=== PATIENT | male | born 1995 | race Caucasian/White ===

== ENCOUNTER 2025-07-06 16:09 | Emergency (ER) | payer BC, SELFPAY ==
[2025-07-06 16:14] VITALS: BP 194/88
[2025-07-06 16:42] VITALS: BP 138/71
--- NOTE | 2025-07-06 16:49 | ED.GENMED ---
History of Present Illness
<Reynold Crocker MD, Resident - Last Filed: 07/06/25 18:59>
General
Chief Complaint: Chest Problem
Source: patient
Time Seen by Provider: 07/06/25 16:30
History of Present Illness
History of Present Illness:
30 year old male with a past medical history of ADHD comes to the ED with recent history of chest discomfort. He says that the pain started around last night and is a squeezing pain. He has been getting light headed along with left sided shoulder
pain. He has had some chills and some mid epigastric pain recently as well. Patient says that he has had symptoms like this in the past when he was diagnosed with pericarditis around 7 years ago. He also mentions having back pain around the upper
mid back which has resolved.
Past History
<Reynold Crocker MD, Resident - Last Filed: 07/06/25 18:59>
Past History
ED Past Medical History: Other (ADHD)
ED Past Surgical History: None
Social History
Tobacco: Non-smoker
Alcohol: Occasional
Drug: None
Personal:
Review of Systems
<Reynold Crocker MD, Resident - Last Filed: 07/06/25 18:59>
Review of Systems
Allergies reviewed?: Yes
All Other Systems: ROS reviewed and negative except as documented in HPI and ROS
Phy Exam
<Reynold Crocker MD, Resident - Last Filed: 07/06/25 18:59>
General Physical Exam
General Presentation: well appearing and mild distress
General age: appears stated age
General Skin: warm and dry
General Habitus: normal
General Mental: alert
Cardiovascular Exam
Cardiovascular Exam: no edema, no murmur and bradycardia
Gastrointestinal Exam
Gastrointestinal Exam: normal bowel sounds, soft and non distended
Palpation: left upper quadrant: Minimal tenderness, left lower quadrant: No tenderness, right upper quadrant: Minimal tenderness and right lower quadrant: No tenderness
Musculoskeletal Exam
Musculoskeletal Exam: full ROM and no edema
Skin Exam
Skin Exam: normal color and warm/dry
Course
<Reynold Crocker MD, Resident - Last Filed: 07/06/25 18:59>
Orders/Labs/Results
Orders:
Orders
07/06/25 16:10
EKG [Electrocardiogram (*1)] Urgent
Reason for Study: Chest Pain
EKG- Treatment ONCE
07/06/25 16:50
Aspirin 325 mg PO NOW STA
Pantoprazole [Protonix] 20 mg PO NOW STA
07/06/25 17:18
Complete Blood Count/With Diff Urgent
Comprehensive Metabolic Panel Urgent
Lipase Urgent
Troponin I Urgent
07/06/25 17:40
US Abdomen Complete/Upper Urgent
Comment:
Reason For Exam: right upper abdominal pain
07/06/25 17:42
CR Chest - 2 Views Urgent
Comment:
Reason For Exam: chest pain
Abnormal Lab Results
07/06/25
17:18
RBC 4.62 L 10^6/uL
(4.70-6.10)
Absolute Monos (auto) 0.7 H 10^3/uL
(0.1-0.6)
07/06/25 17:18
07/06/25 17:18
Vital Signs
Initial and Last Documented VS:
Initial Vital Signs
Temp Pulse Resp BP Pulse Ox
98.3 F 65 18 194/88 100
07/06/25 16:14 07/06/25 16:14 07/06/25 16:14 07/06/25 16:14 07/06/25 16:14
Last Documented Vital Signs
Temp Pulse Resp BP Pulse Ox
98.5 F 51 24 126/68 99
07/06/25 17:45 07/06/25 17:45 07/06/25 17:45 07/06/25 17:45 07/06/25 17:45
<Sandeep Vela, DO - Last Filed: 07/06/25 19:08>
Orders/Labs/Results
Orders:
Orders
07/06/25 16:10
EKG [Electrocardiogram (*1)] Urgent
Reason for Study: Chest Pain
EKG- Treatment ONCE
07/06/25 16:50
Aspirin 325 mg PO NOW STA
Pantoprazole [Protonix] 20 mg PO NOW STA
07/06/25 17:18
Complete Blood Count/With Diff Urgent
Comprehensive Metabolic Panel Urgent
Lipase Urgent
Troponin I Urgent
07/06/25 17:40
US Abdomen Complete/Upper Urgent
Comment:
Reason For Exam: right upper abdominal pain
07/06/25 17:42
CR Chest - 2 Views Urgent
Comment:
Reason For Exam: chest pain
Abnormal Lab Results
07/06/25
17:18
RBC 4.62 L 10^6/uL
(4.70-6.10)
Absolute Monos (auto) 0.7 H 10^3/uL
(0.1-0.6)
07/06/25 17:18
07/06/25 17:18
Vital Signs
Initial and Last Documented VS:
Initial Vital Signs
Temp Pulse Resp BP Pulse Ox
98.3 F 65 18 194/88 100
07/06/25 16:14 07/06/25 16:14 07/06/25 16:14 07/06/25 16:14 07/06/25 16:14
Last Documented Vital Signs
Temp Pulse Resp BP Pulse Ox
98.5 F 51 24 126/68 99
07/06/25 17:45 07/06/25 17:45 07/06/25 17:45 07/06/25 17:45 07/06/25 17:45
<Reynold Crocker MD, Resident - Last Filed: 07/06/25 18:59>
MDM/Problems Addressed
Differential Diagnosis Includes:
Pericarditis, GERD, ACS, Pancreatitis
MDM/Problems Addressed:
30 year old male comes in with recent chest pain that is squeezing in nature.
EKG unremarkable and just shows Sinus Bradycardia which patient says he has been aware of
Will check CBC, CMP, troponin, Lipase
Lab work unremarkable so far, with no elevation in Troponin, any abnormalities in electrolytes or any increased leukocytosis
Lipase normal
Given a dose of Aspirin 325mg and some Protonix
Will check U/S Abdomen due to right sided abdominal pain and CXR
CXR unremarkable, no acute cardiopulmonary process
US Abd unremarkable as well
Symptoms most likely related to GERD vs Pericarditis. Would send in a prescription for 800mg Ibuprofen to take as needed and Omeprazole for gastric reflux.
<Reynold Crocker MD, Resident - Last Filed: 07/06/25 18:59>
*Pulse Oximetry
SaO2: 100
Oxygen Mode of Delivery: Room air
Patient hypoxic: no
*Critical Care Note
Total Time (30-74mins, 75-104mins- exclusive of procedures): Not Applicable
ED Attending Note
<Reynold Crocker MD, Resident - Last Filed: 07/06/25 18:59>
-
Portions of this chart may have been created with voice recognition software.� Occasional wrong word or��sound alike� substitutions may have occurred due to the inherent limitations of voice recognition software.
<Sandeep Vela DO - Last Filed: 07/06/25 19:08>
ED Attending Note
Patient seen and examined by attending physician: Yes
I performed a history and physical exam of patient and discussed management with resident, I reviewed resident's note and agree with documented findings and plan of care.: Yes
ED Attending Note:
I have reviewed and agree with history and treatment plan by Reynold Crocker MD. My exam revealed
General: no apparent distress, not acutely ill
Neck: supple. no meningeal signs. normal posterior pharynx
Heart: s1/s2 regular rate and rhythm, no murmur. equal radial
pulses. Chest wall tender to palpation mild right upper quadrant tenderness
HEENT: Pupils equal round reactive to light, EOMI
Lungs: no acute respiratory distress. clear bilaterally
Abdomen: normal bowel sounds. not tender. no CVAT
Neuro: alert and oriented. no focal neurological deficits cranial nerves II through XII intact
Skin: no rash
Psychiatric: well kept. interactive and cooperative
Extremities: no edema. no calf tenderness. negative homans. good distal pulses
30-year-old male with chest wall pain. Doubt ACS or PE. Stable for discharge.
Discharge Plan
Departure
Patient Disposition: Home (Routine Discharge)
Date of Disposition: 07/06/25
Time of Disposition: 18:58
Patient with high blood pressure during this ER visit?: Yes
Condition: Good
Discharge Problem:
Chest pain due to gastrointestinal reflux disease
Instructions: Chest Pain (DC), BLOOD PRESSURE
Prescriptions:
New
ibuprofen 800 mg tablet
800 mg PO Q8H PRN (Reason: Pain) Qty: 30 0RF
omeprazole 20 mg capsule,delayed release(DR/EC)
20 mg PO DAILY Qty: 30 0RF
Referrals:
JOSE ALBERTO Rice [Other]
Activity Restrictions/Additional Instructions:
As discussed, take ibuprofen for the pain as needed and omeprazole daily to help with your gastric reflux symptoms
If symptoms persist/get worse, please follow up with your PCP
If you develop worsening symptoms and fever/chills, please come back to the ED for further evaluation
Interventions
Interventions:
*Risk Screen - Suicide Last Done: 07/06/25 17:45
*General Assessment Last Done: 07/06/25 16:13
*Neglect/Abuse Screening Last Done: 07/06/25 17:45
*ED- Fall Risk Assessment Last Done: 07/06/25 17:45
*ED COVID-19 Vaccine History Last Done: 07/06/25 17:45
*Nursing Disposition Last Done: 07/06/25 19:07
ED- Cardiac Assessment Last Done: 07/06/25 17:45
ED- Pulmonary Assessment Last Done: 07/06/25 17:45
Discharge Date and Time
Print Language: [place]
[2025-07-06 17:00] VITALS: BP 126/68
[2025-07-06 17:35] LABS: Hematocrit 39.6 % (39.0-52.0); Hemoglobin 13.6 g/dL (13.0-18.0); Mean Corp Hgb Conc. 34.3 g/dL (33.0-37.0); Mean Corpuscular Volume 85.7 fL (80.0-94.0); Nucleated Red Blood Cells % 0 % (-); Platelet Count 199 10^3/uL (130-400); Red Cell Dist. Width 12.5 % (11.5-14.5)
[2025-07-06 17:45] VITALS: BP 126/68; BMI 25.1
[2025-07-06 17:45] LABS: ALT (SGPT) 11 U/L (0-50); AST (SGOT) 21 U/L (17-59); Albumin 4.6 g/dl (3.5-5.0); Alkaline Phosphatase 77 U/L (38-126); Blood Urea Nitrogen 16 mg/dl (9-20); Calcium 9.6 mg/dl (8.4-10.2); Carbon Dioxide 26 mmol/L (22-30); Chloride 107 mmol/L (98-107); Glucose 98 mg/dl (70-99); Lipase 58 U/L (23-300); Potassium 4.1 mmol/L (3.5-5.1); Sodium 140 mmol/L (135-145); Total Protein 7.3 g/dl (6.3-8.2); eGFR > 60.00
[2025-07-06 17:57] LABS: Troponin I < 0.012 ng/ml
[2025-07-06] MEDS: PROTONIX 20 MG PO (17:57)
[2025-07-06] MEDS: ASPIRIN 325 MG PO (17:57)
[2025-07-06 18:40] VITALS: BP 164/79
[2025-07-06 19:00] VITALS: BP 152/81
== END 2025-07-06 19:08 | disposition home or self-care (01) ==
LOC: EMR 16:09
PROVIDERS: EMERGENCY PHYSICIAN Emergency Medicine
DX: K21.9 Gastro-esophageal reflux disease without esophagitis (principal); R07.89 Other chest pain; R00.1 Bradycardia, unspecified
CPT/HCPCS: 99285; 71046; 76700; 80053; 83690; 84484; 85025; 93005